=== PATIENT | female | born 1995 | race Caucasian/White ===

== ENCOUNTER 2017-02-27 12:09 | Emergency (ER) | payer MEDICAID ==
[~2017-02-27] VITALS: Ht 149.9 cm; Wt 83.2 kg
[2017-02-27 13:46] LABS: BASOPHIL % 0.4 % (0-2); PLATELET COUNT 261 x10^3mcL (130-400)
[2017-02-27 13:47] LABS: RED CELL DISTRIBUTION WIDTH 16.6 % (11.5-14.5)
[2017-02-27 14:14] VITALS: BP 121/72
== END 2017-02-27 14:55 | disposition home or self-care (01) ==
LOC: ED 12:09
PROVIDERS: Emergency Medicine
DX: N92.0 Excessive and frequent menstruation with regular cycle (principal); D64.9 Anemia, unspecified